=== PATIENT | female | born 1955 | race Caucasian/White ===

== ENCOUNTER → 2020-12-24 | Outpatient (CLI) | payer OTHER ==
[~2020-12-24] MED LIST: CRESTOR10 MG PO; ECOTRIN81 MG PO; GLUCOPHAGE1000 MG PO; GLUCOTROL XL 5 M5 MG PO; IBUPROFEN PO; LASIX20 MG PO; LOSARTAN HCTZ PO; NORCO 5-325 TA1 EACH PO; PROMETHAZINE HC25 M1 PO; VITAMIN B-121000 MCG PO
== END ==
LOC: KOH-I 15:52
DX: M25.511 Pain in right shoulder (principal); M79.621 Pain in right upper arm
CPT/HCPCS: 73030; 73060

== ENCOUNTER → 2020-12-30 | Outpatient (CLI) | payer OTHER | LOC: KOH-I 12:28 | DX: R06.02 Shortness of breath (principal) | CPT/HCPCS: 71046 ==

== ENCOUNTER → 2021-12-22 | Outpatient (CLI) | payer OTHER | LOC: KOH-I 15:00 | DX: R10.84 Generalized abdominal pain (principal); R10.2 Pelvic and perineal pain; Z85.42 Personal history of malignant neoplasm of other parts of uterus | CPT/HCPCS: 74176 ==

== ENCOUNTER → 2022-02-18 | Outpatient (CLI) | payer OTHER | LOC: KOH-I 16:42 | DX: M54.50 Low back pain, unspecified (principal); M47.816 Spondylosis without myelopathy or radiculopathy, lumbar region | CPT/HCPCS: 72100 ==